=== PATIENT | female | born 1950 | race African-American/Black ===

== ENCOUNTER 2022-06-13 15:46 | Inpatient (IN) | payer MEDICARE, OTHER ==
[~2022-06-13] VITALS: Ht 182.9 cm; Wt 117.7 kg
[~2022-06-13 15:46] MED LIST: ALPR0.254 PO; ASPI81CH43 PO; GABA300C PO; HYDR1TAB97 PO; LISI-716 PO; OMEP20CA74 PO; PROC25RS PO; SENNTAB PO; TEMA15CA PO
[2022-06-13 18:02] LABS: Basophils # (auto) 0.1 10 ^3/uL (0-0.2); Basophils % (auto) 1.1 % (0.0-2.0); Eosinophils # (auto) 0.4 10 ^3/uL (0-0.8); Hemoglobin 11.8 g/dL (12.2-16.2); Lymphocytes # (auto) 2.7 10 ^3/uL (0.4-5.4); Lymphocytes % (auto) 36.6 % (10.0-50.0); Mean Corpuscular Hemoglobin 28.6 pg (28.0-32.0); Mean Corpuscular Hgb Conc. 33.7 g/dL (32.0-36.0); Mean Corpuscular Volume 84.6 fL (80.0-100.0); Monocytes # (auto) 0.4 10 ^3/uL (0-1.3); Neutrophils # (auto) 3.8 10 ^3/uL (1.6-8.6); Neutrophils % (auto) 51.3 % (37.0-80.0); Nucleated Red Blood Cells % 0.1 %; Red Blood Cells 4.14 10^6/uL (4.0-5.20); Red Cell Distribution Width 16.6 % (11.8-14.3); White Blood Cell 7.5 10^3/uL (4.4-10.8)
[2022-06-13 18:18] LABS: Albumin 2.9 g/dL (3.4-5.0); BUN/Creatinine Ratio 12.4; Calcium 8.4 mg/dL (8.5-10.1); Potassium 5.3 mmol/L (3.5-5.1)
[2022-06-13 18:21] LABS: Bilirubin, Total 0.3 mg/dL (0.2-1.0); Total Protein 7.2 g/dL (6.4-8.2)
[2022-06-13] MEDS ORDERED: FUROSEMIDE 100 MG/10ML VIAL IV ONE (19:15)
[2022-06-13] MEDS ORDERED: hydrALAZINE HCL 20 MG/ML VL IV PRN (21:15)
[2022-06-13] MEDS ORDERED: ONDANSETRON HCL 4 MG/2 ML VIAL IV PRN (21:15)
[2022-06-13] MEDS ORDERED: DEXTROSE (50%) 50ML SYRG IV PRN (21:15)
[2022-06-13] MEDS ORDERED: DOCUSATE SOD 100 MG CAP PO PRN (21:15)
[2022-06-13] MEDS ORDERED: AZITHROMYCIN 500MG/ 250ML 250 ML IV ONE (21:15)
[2022-06-13] MEDS ORDERED: ALBUMIN 25% 100 ML IV ONE (21:15)
[2022-06-13] MEDS ORDERED: ACETAMINOPHEN 325 MG TAB PO PRN (21:15)
[2022-06-13 21:25] LABS: Urine Bacteria FEW /hpf (None Seen); Urine Blood Negative /uL (Negative); Urine Specific Gravity 1.011 (1.001-1.035); Urine WBC 33 /hpf (0 - 5)
[2022-06-13] MEDS ORDERED: ALPRAZolam 0.25 MG TAB PO PRN (21:30)
[2022-06-13] MEDS ORDERED: IBUPROFEN 600 MG TAB PO PRN (21:30)
[2022-06-13] MEDS ORDERED: MORPHINE SULFATE INJ 2 MG/ml SYRG IV PRN (22:45)
[2022-06-13] MEDS ORDERED: NITROGLYCERIN 0.4 MG SL TAB SL PRN (22:45)
[2022-06-13] MEDS: ACCU-CHEK COMFORT CURVE STRIP VI SCH (23:42)
[2022-06-13] MEDS: InsuLIN REG 1unit/0.01ml Soln (100units/ml) SC SCH (23:45)
[2022-06-14 06:00] LABS: Basophils # (auto) 0 10 ^3/uL (0-0.2); Basophils % (auto) 0.5 % (0.0-2.0); Eosinophils # (auto) 0.4 10 ^3/uL (0-0.8); Eosinophils % (auto) 6.2 % (0.0-7.0); Hematocrit 34.5 % (36.0-46.0); Hemoglobin 11.9 g/dL (12.2-16.2); Lymphocytes # (auto) 2.5 10 ^3/uL (0.4-5.4); Lymphocytes % (auto) 38.7 % (10.0-50.0); Mean Corpuscular Hemoglobin 29.3 pg (28.0-32.0); Mean Corpuscular Hgb Conc. 34.5 g/dL (32.0-36.0); Monocytes # (auto) 0.4 10 ^3/uL (0-1.3); Monocytes % (auto) 5.5 % (0.0-12.0); Neutrophils # (auto) 3.2 10 ^3/uL (1.6-8.6); Neutrophils % (auto) 49.1 % (37.0-80.0); Nucleated Red Blood Cells % 0.2 %; Red Blood Cells 4.06 10^6/uL (4.0-5.20); Red Cell Distribution Width 16.3 % (11.8-14.3); White Blood Cell 6.5 10^3/uL (4.4-10.8)
[2022-06-14 06:19] LABS: Potassium 4.8 mmol/L (3.5-5.1)
[2022-06-14 06:27] LABS: Albumin 3.1 g/dL (3.4-5.0); BUN/Creatinine Ratio 11.9; Bilirubin, Total 0.5 mg/dL (0.2-1.0); Calcium 8.4 mg/dL (8.5-10.1); Total Protein 7.4 g/dL (6.4-8.2)
[2022-06-14] MEDS: ACCU-CHEK COMFORT CURVE STRIP VI SCH ×4 (06:47→22:00)
[2022-06-14] MEDS: InsuLIN REG 1unit/0.01ml Soln (100units/ml) SC SCH ×4 (06:48→22:00)
[2022-06-14] MEDS: SODIUM CHLOR 0.9% PF (SALINE LOCK) 10ML VIAL/SYR IV SCH ×4 (07:07→22:00)
[2022-06-14] MEDS: ASPirin 81 mg TAB PO SCH (11:08)
[2022-06-14] MEDS: FAMOTIDINE (10MG/ML) 2ML VL IV SCH (11:55)
[2022-06-14] MEDS: FUROSEMIDE 40 MG/4 ML VIAL IV SCH (11:55)
[2022-06-14] MEDS ORDERED: ALBUMIN 25% 50 ML IV ONE ×2 (12:45)
[2022-06-14 22:03] VITALS: BP 142/67
[2022-06-14] MEDS ORDERED: SEVE800T10 PO (22:35)
[2022-06-14] MEDS ORDERED: TIOT17SP INH (22:35)
[2022-06-14] MEDS ORDERED: BUME2TAB5 PO (22:35)
[2022-06-14] MEDS ORDERED: PERCOT PO (22:35)
[2022-06-14] MEDS ORDERED: INSLANTI SC (22:35)
[2022-06-14] MEDS ORDERED: B-COCAP4 OR (22:35)
[2022-06-14] MEDS ORDERED: INSU70IN3 SC (22:35)
[2022-06-14] MEDS ORDERED: MAGN400C3 PO (22:35)
[2022-06-14] MEDS: AZITHROMYCIN 500MG/ 250ML 250 ML IV SCH (22:42)
[2022-06-15] VITALS (7 sets, daily range): BP systolic 123–176; BP diastolic 42–74
[2022-06-15] MEDS: SODIUM CHLOR 0.9% PF (SALINE LOCK) 10ML VIAL/SYR IV SCH ×3 (05:53→22:00)
[2022-06-15] MEDS: ACCU-CHEK COMFORT CURVE STRIP VI SCH (06:23)
[2022-06-15] MEDS: InsuLIN REG 1unit/0.01ml Soln (100units/ml) SC SCH (06:24)
[2022-06-15] MEDS ORDERED: SODIUM CHL 0.9% 1000 ML BAG XX ONE (07:00)
[2022-06-15 08:50] LABS: Hematocrit 32.4 % (36.0-46.0); Hemoglobin 11.2 g/dL (12.2-16.2)
[2022-06-15 09:12] LABS: % Iron Saturation 59.2 % (15-50)
[2022-06-15] MEDS: FAMOTIDINE (10MG/ML) 2ML VL IV SCH (10:25)
[2022-06-15] MEDS: ASPirin 81 mg TAB PO SCH (10:25)
[2022-06-15] MEDS: FUROSEMIDE 40 MG/4 ML VIAL IV SCH (10:25)
[2022-06-15] MEDS ORDERED: IPRATROPIUM BROM 0.5 MG/2.5ML INH SOL NEB SCH (18:00)
[2022-06-15] MEDS: IPRATROPIUM BROM 0.5 MG/2.5ML INH SOL NEB SCH (19:46)
[2022-06-15] MEDS: AZITHROMYCIN 500MG/ 250ML 250 ML IV SCH ×2 (21:47→22:00)
[2022-06-16 05:00] VITALS: BP 141/60
[2022-06-16] MEDS: SODIUM CHLOR 0.9% PF (SALINE LOCK) 10ML VIAL/SYR IV SCH ×2 (06:18→14:00)
[2022-06-16 06:53] LABS: Calcium 8.1 mg/dL (8.5-10.1); Magnesium 2.9 mg/dL (1.6-2.6); Potassium 4.7 mmol/L (3.5-5.1)
[2022-06-16 06:55] LABS: BUN/Creatinine Ratio 12.1
[2022-06-16] MEDS ORDERED: SODIUM CHL 0.9% 1000 ML BAG XX ONE (07:00)
[2022-06-16] MEDS: IPRATROPIUM BROM 0.5 MG/2.5ML INH SOL NEB SCH ×3 (07:42→18:29)
[2022-06-16] MEDS ORDERED: hydrALAZINE HCL 10 MG TAB PO PRN (08:45)
[2022-06-16 09:00] VITALS: BP 147/56
[2022-06-16] MEDS: FUROSEMIDE 40 MG/4 ML VIAL IV SCH ×3 (09:49→10:00)
[2022-06-16] MEDS: ASPirin 81 mg TAB PO SCH (09:50)
[2022-06-16] MEDS ORDERED: AZITHROMYCIN 250 MG TAB PO SCH (10:00)
[2022-06-16] MEDS ORDERED: B-COCAP4 OR (11:48)
[2022-06-16 12:48] VITALS: BP 155/83
[2022-06-16 16:31] VITALS: BP 141/60
[2022-06-16 17:00] VITALS: BP 127/66
[2022-06-16] MEDS ORDERED: ALBUTEROL MEDNEB 2.5 mg/3ml NEB ONE (17:44)
[2022-06-16] MEDS ORDERED: EPOETIN ALFA-EPBX 10,000 UNIT/1ML VIAL SC ONE (21:00)
== END 2022-06-16 18:50 | DRG 193 ==
LOC: ER 15:46 → EDBD 15:46 → TELE 22:41 → TELE-CENTR 06-14 21:05
PROVIDERS: ADMIT Nurse Practitioner Family; ATTEND Internal Medicine
PROC: 5A1D70Z Performance of Urinary Filtration, Intermittent, Less than 6 Hours Per Day (ICD-10-PCS; 2022-06-15)
PROC: 5A1D70Z Performance of Urinary Filtration, Intermittent, Less than 6 Hours Per Day (ICD-10-PCS; principal; 2022-06-16)
DX: J18.9 Pneumonia, unspecified organism (principal); I50.23 Acute on chronic systolic (congestive) heart failure; N18.6 End stage renal disease; I13.2 Hypertensive heart and chronic kidney disease with heart failure and with stage 5 chronic kidney disease, or end stage renal disease; N30.00 Acute cystitis without hematuria; E44.0 Moderate protein-calorie malnutrition; E11.22 Type 2 diabetes mellitus with diabetic chronic kidney disease; E87.5 Hyperkalemia; E66.01 Morbid (severe) obesity due to excess calories; E78.5 Hyperlipidemia, unspecified; J45.909 Unspecified asthma, uncomplicated; Z20.822 Contact with and (suspected) exposure to COVID-19; M89.8X9 Other specified disorders of bone, unspecified site; E87.6 Hypokalemia; D63.1 Anemia in chronic kidney disease; Z99.2 Dependence on renal dialysis; Z68.35 Body mass index [BMI] 35.0-35.9, adult; Z88.1 Allergy status to other antibiotic agents; Z88.5 Allergy status to narcotic agent; Z71.3 Dietary counseling and surveillance; Z82.49 Family history of ischemic heart disease and other diseases of the circulatory system; Z83.3 Family history of diabetes mellitus; Z90.710 Acquired absence of both cervix and uterus
CPT/HCPCS: 36415; 71045; 80048; 80053; 81001; 82728; 82962; 83036; 83540; 83550; 83735; 83880; 85014; 85018; 85025; 87040; 87081; 87086; 87088; 87186; 87340; 87426; 90935; 93306; 93971; 94640; 96365; 96367; 96372; 96375; G0378; J1815; J3490